=== PATIENT | female | born 1960 | race Hispanic/Latino ===

== ENCOUNTER → 2019-08-22 | Outpatient (CLI) | payer OTHER | END | disposition home or self-care (01) | LOC: RAH 15:05 | PROVIDERS: ATTEND Internal Medicine | DX: I10 Essential (primary) hypertension (principal) | CPT/HCPCS: 71045 ==

== ENCOUNTER → 2023-10-12 | Outpatient (CLI) | payer OTHER | END | disposition home or self-care (01) | LOC: RAH 09:18 | PROVIDERS: ATTEND Internal Medicine | DX: Z13.6 Encounter for screening for cardiovascular disorders (principal) | CPT/HCPCS: 75571 ==